=== PATIENT | female | born 1970 | race Caucasian/White ===

== ENCOUNTER 2019-12-20 08:49 | Day surgery (SDC) | payer SELFPAY ==
[~2019-12-20 08:49] MED LIST: Bupivacaine 0.5%/EPINEPHrine 1:200,000 50 ML MDV ONE; Dexamethasone 4 MG/ML SDV ONE; Glycopyrrolate 0.2 MG/ML 5 ML MDV ONE; Neostigmine Methylsulfate 1 MG/ML 5 ML Syringe ONE; Ondansetron 4 MG/2 ML SDV ONE; Propofol 200 MG/20 ML SDV ONE; Rocuronium 50 MG/5 ML Vial ONE; fentaNYL 250 MCG/5 ML SDV ONE
[2019-12-20] MEDS ORDERED: Acetaminophen 500 MG Tab PO ONE (09:00)
[2019-12-20] MEDS ORDERED: Scopolamine 1.5 MG Transdermal Patch TOP SCH (09:30)
[2019-12-20] MEDS ORDERED: Ketamine 500 MG/5 ML MDV IV SCH (10:00)
[2019-12-20] MEDS ORDERED: Ropivacaine 32 ML, dexAMETHasone 8 MG, EPINEPHrine 0.4 MG, Sodium Chloride 0.9% 45.6 ML NERVRT SCH ×4 (10:00)
[2019-12-20] MEDS: Dextrose 5%-Lactated Ringers 1,000 ML IV SCH ×3 (10:04→23:15)
[2019-12-20] MEDS ORDERED: cefOXitin 2 GM in Sodium Chloride 0.9% 50 ML IV ONE (10:30)
[2019-12-20] MEDS ORDERED: hydrOXYzine HCL 100 MG/2 ML SDV IM ONE (11:22)
[2019-12-20] MEDS ORDERED: Acetaminophen/HYDROcodone 325-5 MG Tab PO PRN (12:14)
[2019-12-20] MEDS ORDERED: HYDROmorphone 1 MG/ML Syringe IV PRN (12:14)
[2019-12-20] MEDS ORDERED: HYDROmorphone 0.5 MG/0.5 ML Syringe IVPUSH PRN (12:14)
[2019-12-20] MEDS: Ondansetron 4 MG/2 ML SDV IVPUSH PRN ×3 (12:19→19:48)
[2019-12-20] MEDS: CHECK SCOPOLAMINE PATCH TOP SCH (13:00)
[2019-12-20] MEDS ORDERED: Pantoprazole 40 MG Vial IVPUSH SCH (14:00)
[2019-12-20] MEDS: cefOXitin 2 GM in Sodium Chloride 0.9% 50 ML IV SCH ×2 (15:58→22:29)
[2019-12-20] MEDS ORDERED: Metoclopramide 10 MG/2 ML SDV IV PRN (21:13)
[2019-12-21] MEDS: cefOXitin 2 GM in Sodium Chloride 0.9% 50 ML IV SCH ×2 (04:06→09:59)
[2019-12-21] MEDS ORDERED: Fluticasone Propionate Nasal Spray 16 GM Bottle NASBOTH SCH (09:00)
[2019-12-21] MEDS: Aspirin 81 MG Tab.EC PO SCH ×2 (09:41→09:42)
[2019-12-21] MEDS: CHECK SCOPOLAMINE PATCH TOP SCH (09:58)
--- NOTE | 2019-12-23 11:35 | DISCH ---
FINAL DIAGNOSES: 1. Chronic cholecystitis with gallbladder sludge. 2. Small umbilical hernia. SECONDARY DIAGNOSES: 1. History of esophageal reflux. 2. History of allergic rhinitis. OPERATIVE PROCEDURE: This was done on 12/20/19, diagnostic laparoscopy with: 1. Cholecystectomy. 2. Umbilical hernia repair. SUMMARY: This is a 48-year-old looking plagued with several months and perhaps longer of an upper abdominal pain. This was initially thought to be perhaps reflux. She did have a trial of Protonix 40 mg a day, which did not result in any significant change in her symptoms. Subsequently, an ultrasound was obtained, which showed a somewhat thickened gallbladder containing sludge and examination of the stomach asymmetrically uncomfortable on deep palpation on the right side compared to the left upper abdomen. With a presumptive diagnosis of biliary colic, the patient underwent a cholecystectomy on 12/20/2019. It showed a small umbilical hernia, which was repaired concurrently. Postoperatively, the patient had some nausea, it has now cleared, and she will be discharged home later today. MEDICATIONS ON DISCHARGE: Include her present medications plus ibuprofen 400 to 600 mg q.i.d. p.r.n. While she is on the ibuprofen, she will be instructed to take Protonix 40 mg daily. Also, then Extra Strength Tylenol 1000 mg q.i.d. p.r.n. pain. She also has a scopolamine patch on, which she will be instructed to remove Monday after her postoperative labs look good and the pathology on the gallbladder is pending. FOLLOWUP PLAN: Follow up with Dr. Eng at [facility] on 01/01/2020.
--- NOTE | 2019-12-29 13:03 | OR ---
DATE OF PROCEDURE: 12/20/2019 SURGEON: Zafar Eng MD PREOPERATIVE DIAGNOSIS: Chronic cholecystitis with gallbladder sludge. POSTOPERATIVE DIAGNOSES: 1. Chronic cholecystitis with gallbladder sludge. 2. Incarcerated small umbilical hernia. OPERATIVE PROCEDURES: Diagnostic laparoscopy with: 1. Cholecystectomy (60880). 2. Repair of incarcerated umbilical hernia (51049). ANESTHESIA: General. CHILD DEVELOPMENT DIRECTOR: Florence Pollard PA-C INDICATION FOR PROCEDURE: This is a 48-year-old female presenting with ongoing discomfort in the right upper quadrant radiating to the back involving to a lesser extent the epigastrium. Under ultrasound, the patient was noted to have focal areas of gallbladder wall thickening as well as some sludge. She was originally thought to perhaps be having some reflux or gastritis and had a course of Protonix, which did not result in any improvement of her symptoms. She was thus referred at this time for consideration of cholecystectomy. Plan is to proceed with laparoscopic cholecystectomy. Potential risks including bleeding, infection, injury to underlying viscera such as common bile duct, possible persistence of symptoms following the cholecystectomy were all reviewed, and the patient wishes to proceed. DETAILS OF PROCEDURE: The patient was taken to the operating room, placed in a supine position. After general endotracheal anesthesia was induced, the abdomen was prepped and draped. A transverse epigastric incision was then made and peritoneal cavity entered under direct vision with an Optiview trocar, inflated with 15 mmHg pressure of CO2. Laparoscope was reinserted. No underlying trocar insertion site injuries were seen. Following this, a transverse subumbilical incision was made. The patient was noted to have a small umbilical hernia which contained some incarcerated preperitoneal fat. A 12 mm trocar was then placed through the umbilical incision and then directed through the hernia displacing the incarcerated preperitoneal fat internally. 5 mm trocar was then placed in the right subcostal area. Bilateral transversus abdominis plane blocks were placed. The upper abdomen was examined. The patient was noted to have a tense distention of the gallbladder along with some obvious edema in the gallbladder neck and the cystic duct triangle area. The gallbladder did retract anterolaterally and dissection began on the gallbladder neck with Harmonic Scalpel, deepened down along the gallbladder neck and around the gallbladder neck and cystic duct junction. Once that area was well delineated as was the adjacent cystic artery, both structures were clipped 3 times proximally, once distally, and divided. Gallbladder was then dissected off the gallbladder bed with Harmonic Scalpel and delivered through the epigastric trocar site off the field. The patient was noted to have some sludge like material within the gallbladder and cholesterolosis of the gallbladder wall. The area of dissection was inspected. No bleeding or bile leaks were seen. The camera port was then brought up to the epigastric site once again and the umbilical hernia was then repaired with transversely oriented closure using the laparoscopic suture passer, placing the 0 Vicryl stitches. Once these were completed, the remaining trocars were removed and peritoneal cavity deflated. Fascia at the epigastric site was closed with 0 Vicryl stitch and the umbilical hernia repair site stitches were then tied as well, and the incision was closed with some 4-0 Vicryl skin stitch, and anesthetized with some 1% lidocaine mixed with Marcaine. Physician graduate research assistant, Florence Pollard, played an essential role in assisting in this case, helping to position the patient, retract structures as needed, as well as suturing and cutting sutures when indicated. Her presence improved patient safety and decreased the operative time. Zafar Eng MD /[id number]
== END 2019-12-21 10:45 | disposition home or self-care (01) ==
LOC: JP.SDS 08:49 → JP.MS 10:30 → JP.SDS 12-21 10:45
PROVIDERS: ATTEND Surgery
DX: K81.1 Chronic cholecystitis (principal); K42.0 Umbilical hernia with obstruction, without gangrene; K21.9 Gastro-esophageal reflux disease without esophagitis; J30.9 Allergic rhinitis, unspecified
CPT/HCPCS: 36415; 47562; 49653; 80053; 81025; 82247; 83735; 84075; 84100; 85025; 85027; 88304; A9270; C9113; J0171; J0694; J1100; J1170; J2405; J2704; J2710; J2765; J2795; J3010; J3410; J3490; J7050; J7121

== ENCOUNTER 2020-12-25 06:29 | Day surgery (SDC) | payer SELFPAY ==
[2020-12-25] MEDS ORDERED: Sodium Chloride 0.9% 1,000 ML IV SCH (07:00)
[2020-12-25] MEDS ORDERED: Midazolam 1 MG/ML 2 ML SDV ONE (07:18)
[2020-12-25] MEDS ORDERED: Propofol 200 MG/20 ML SDV ONE (07:18)
[2020-12-25] MEDS ORDERED: fentaNYL 100 MCG/2 ML SDV ONE (07:18)
--- NOTE | 2020-12-25 10:47 | OR ---
DATE OF PROCEDURE: 12/25/2020 SURGEON: Quirino Mccall MD PROCEDURES: 1. Esophagogastroduodenoscopy. 2. Colonoscopy. FINDINGS: 1. Mild inflammation at GE junction concerning for reflux disease (biopsied in all 4 quadrants using cold biopsy forceps). 2. Colonoscopy showing very mild diverticulosis with only a small segment in sigmoid colon (approximately 5 to 10 noted). COMPLICATIONS: None. FILBERT GROWER: None. RISKS: Risks, benefits, alternatives, and limitations including, but not limited to infection, bleeding, false positives, false negatives, and perforation were explained to the patient, who wished to proceed. PREOPERATIVE DIAGNOSIS: Epigastric pain/screening colonoscopy. POSTOPERATIVE DIAGNOSIS: Epigastric pain/screening colonoscopy. PROCEDURE IN DETAIL: The patient was placed in the left lateral decubitus position. The EGD scope was introduced and advanced atraumatically to the 2nd part of the duodenum. No evidence of duodenitis or ulceration within the stomach. There was no evidence of gastritis or ulceration. The GE junction showed mild inflammation concerning for reflux disease and biopsied in all 4 quadrants using cold biopsy forceps. The remaining esophagus was normal. Digital rectal exam was performed without abnormality. Scope was introduced and advanced atraumatically to the ileocecal valve. Photo was taken. Scope was brought back to the ascending, transverse, descending colon and retroflexed. No evidence of old or new blood. No masses. No polyps. Diverticulosis described as mild, limited to sigmoid colon without evidence of diverticulitis or bleeding. The patient tolerated the procedure well. Quirino Mccall MD /[id number]
== END 2020-12-25 08:50 | disposition home or self-care (01) ==
LOC: JP.SDS 06:29
PROVIDERS: ATTEND Surgery
DX: Z12.11 Encounter for screening for malignant neoplasm of colon (principal); K21.00 Gastro-esophageal reflux disease with esophagitis, without bleeding; K57.30 Diverticulosis of large intestine without perforation or abscess without bleeding
CPT/HCPCS: 43239; 45378; 81025; J2250; J2704; J3010; J7030

== ENCOUNTER 2022-10-01 15:11 | Emergency (ER) | payer SELFPAY | END 2022-10-01 16:26 | disposition home or self-care (01) | LOC: JP.ED 15:11 | DX: J01.90 Acute sinusitis, unspecified (principal); Z79.82 Long term (current) use of aspirin; Z79.899 Other long term (current) drug therapy; Z90.49 Acquired absence of other specified parts of digestive tract | CPT/HCPCS: 99283 ==